=== PATIENT | female | born 1945 | race American Indian/Alaskan Native ===

== ENCOUNTER 2018-10-23 05:44 | Day surgery (SDC) | payer MEDICARE ==
[~2018-10-23 05:44] MED LIST: LACTATED RINGERS 1,000 ML IV SCH
[2018-10-23] MEDS ORDERED: NACL BACTERIOSTATIC INFILTRATI ONE (06:25)
[2018-10-23] MEDS ORDERED: MARCAINE 0.25% INFILTRATI ONE ×2 (06:53→07:30)
[2018-10-23] MEDS ORDERED: XYLOCAINE 1% 20 mL ONE (06:53)
[2018-10-23 07:04] LABS: Basophils % (Auto) 0.6 % (0.0-1.8); Eosinophils # (Auto) 0.2 K/mm3 (0.0-0.4); Eosinophils % (Auto) 2.6 % (0.0-4.3); Hematocrit 38.8 % (30.3-42.9); Hemoglobin 12.5 gm/dl (10.1-14.3); Lymphocytes # (Auto) 1.6 K/mm3 (1.2-5.4); Lymphocytes % (Auto) 27.2 % (13.4-35.0); Mean Corpuscular HGB Conc 32 % (30-34); Mean Corpuscular Volume 91 fl (79-97); Monocytes # (Auto) 0.4 K/mm3 (0.0-0.8); Monocytes % (Auto) 7.2 % (0.0-7.3); Platelet Count 146 K/mm3 (140-440); Red Blood Count 4.24 M/mm3 (3.65-5.03); Red Cell Distribution Width 13.6 % (13.2-15.2)
[2018-10-23 07:15] LABS: Calcium 9.9 mg/dL (8.4-10.2); INR 0.91 (0.87-1.13); Partial Thromboplastin Time 29.9 Sec. (24.2-36.6)
--- NOTE | 2018-10-23 07:23 | Anesthesia Day of Surgery ---
Anesthesia Day of Surgery - Day of Surgery Patient Examined: Yes Patient H&P Reviewed: Yes Patient is NPO: Yes Cardiac Clearance: Yes
--- NOTE | 2018-10-23 07:23 | Anesthesia Consultation ---
Anesthesia Consult and Med Hx Date of service: 10/23/18 - Airway Anesthetic Teeth Evaluation: Edentulous ROM Head & Neck: Adequate Mental/Hyoid Distance: Adequate Mallampati Class: Class III Intubation Access Assessment: Possibly Difficult - Pulmonary Exam CTA: Yes - Cardiac Exam Cardiac Exam: No Murmur (irregular rhythm) - Pre-Operative Health Status ASA Pre-Surgery Classification: ASA3 Proposed Anesthetic Plan: General, MAC - Pre-Anesthesia Comment Pre-Anesthesia Comments: GA vs MAC pending discussion with surgeon - Pulmonary Hx Smoking: Yes (QUIT 40 YRS AGO) Hx Respiratory Symptoms: No COPD: No Hx Sleep Apnea: No - Cardiovascular System Hx Hypertension: Yes Hx Heart Attack/AMI: No Hx Percutaneous Transluminal Coronary Angioplasty (PTCA): No Hx Cardia Arrhythmia: Yes (a-fib; off eliquis since 10/19) Hx Pacemaker: No Hx Internal Defibrillator: No - Central Nervous System Hx Seizures: No CVA: No - Endocrine Hx Renal Disease: Yes (CKD; 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
[2018-10-23] MEDS ORDERED: XYLOCAINE MPF 2% ONE (07:29)
[2018-10-23] MEDS ORDERED: DIPRIVAN 10 MG/ML IV ONE (07:29)
[2018-10-23] MEDS ORDERED: SUBLIMAZE ONE (07:29)
[2018-10-23] MEDS ORDERED: ZOFRAN ONE (07:29)
[2018-10-23] MEDS ORDERED: QUELICIN ONE (07:29)
[2018-10-23] MEDS ORDERED: DECADRON ONE (07:29)
[2018-10-23] MEDS ORDERED: NACL 0.9% IR ONE (07:30)
[2018-10-23] MEDS ORDERED: XYLOCAINE 1% 20 mL INFILTRATI ONE (07:30)
[2018-10-23] MEDS ORDERED: VANCOMYCIN 1,250 MG in NACL 0.9% 250ML 250 ML IV SCH (07:45)
[2018-10-23] MEDS ORDERED: VANCOMYCIN 1,250 MG in NACL 0.9% 500 ML 500 ML IV ONE (08:00)
[2018-10-23] MEDS ORDERED: SUBLIMAZE IV PRN (09:14)
[2018-10-23] MEDS ORDERED: NORCO 5/325 PO PRN (09:14)
--- NOTE | 2018-10-23 09:17 | Short Stay Summary ---
Short Stay Documentation Date of service: 10/23/18 - History Principal diagnosis: RIGHT AND LEFT BACK SOFT TISSUE MASS - Allergies and Medications Current Medications: Allergies Penicillins Allergy (Intermediate, Verified 10/11/18 12:15) Itching Home Medications Medication Instructions Recorded Confirmed Last Taken Type Allopurinol [Zyloprim] 100 mg PO QDAY 12/04/13 10/23/18 10/22/18 14:00 History Furosemide [Lasix] 40 mg PO DAILY 12/04/13 10/23/18 10/22/18 14:00 History Simvastatin 10 mg PO QDAY 12/04/13 10/23/18 10/22/18 14:00 History Aspirin [Aspirin BABY CHEW TAB] 81 mg PO QDAY 30 Days tab.chew 01/26/1410/2310/22/18 14:00 Rx Apixaban [Eliquis] 5 mg PO BID 10/11/18 10/11/18 10/19/18 14:00 History Colchicine [Colcrys] 0.6 mg PO PRN 10/11/18 10/23/18 10/22/18 14:00 History Metoprolol Xl [Metoprolol 50 mg PO DAILY 10/11/18 10/11/18 10/22/18 14:00 History SUCCINATE ER TAB] Active Medications Lactated Ringer's (Lactated Ringers) 1,000 mls @ 42 mls/hr IV DIRECT AMA Last Admin: 10/23/18 06:40 Dose: 42 mls/hr Documented by: Vancomycin HCl 1,250 mg/ (Sodium Chloride) 275 mls @ 166.667 mls/hr IV PREOP AMA - Brief post op/procedure progress note Date of procedure: 10/23/18 Pre-op diagnosis: right and left back soft tissue mass Post-op diagnosis: same Procedure: excision soft tissue mass right and left back Anesthesia: GETA, local Findings: 1. left back soft tissue mass - 15 cm 2. right back soft tissue mass - 11 cm Surgeon: AMITA OLIVERA Estimated blood loss: minimal Pathology: list (1. right back lipoma, 2. left back lipoma) Specimen disposition: to lab Condition: stable - Hospital course Hospital course: Pt observed in PACU and discharged to home in stable condition when criteria met - Disposition Condition at discharge: Good Disposition: DC- TO HOME OR SELFCARE Short Stay Discharge Plan Activity: no restrictions Diet: regular Wound: open to air, per your surgeon's advice Additional Instructions: SEE PRINTED DISCHARGE INSTRUCTIONS Follow up with: MOIZ STARR MD [Primary Care Provider] - 7 Days AMITA OLIVERA DO [Staff Physician] - 10 Days Prescriptions: HYDROcodone/APAP 5-325 [[place] 5/325] 1 each PO Q6HR PRN #20 tablet PRN Reason: Pain
--- NOTE | 2018-10-23 10:34 | Post Anesthesia Evaluation ---
- Post Anesthesia Evaluation Patient Participated: Yes Airway Patent: Yes Stable Respiratory Function: Yes Nausea/Vomiting: No Temp > 96.8F: Yes Pain Manageable: Yes Adequeate Hydration: Yes Anesthesia Complications: No
[2018-10-23 11:11] VITALS: BP 148/92
--- NOTE | 2018-10-24 18:10 | Operative Report ---
PREOPERATIVE DIAGNOSES: Right and left back soft tissue masses. POSTOPERATIVE DIAGNOSES: Right and left back soft tissue masses. PROCEDURE: Excision of soft tissue mass, right and left back. ANESTHESIA: General endotracheal anesthesia, local. FINDINGS: 1. Left back soft tissue mass, 15 cm. 2. Right back soft tissue mass, 11 cm. SURGEON: Tamia Toscano DO ESTIMATED BLOOD LOSS: Minimal. PATHOLOGY: 1. Right back lipoma. 2. Left back lipoma. SPECIMEN DISPOSITION: To lab. CONDITION AND DISPOSITION: The patient is stable to PACU. HISTORY OF PRESENT ILLNESS AND INDICATIONS: The patient is a 73-year-old female who presented as a referral to the surgery clinic with complaints of a large lump on the left side of her back. On examination, this was consistent with a soft tissue mass, likely a lipoma. The patient expressed discomfort with the mass in this area, especially when lying on her back due to its large size and therefore recommendation was to have it removed. All risks, benefits and alternatives to surgery were discussed with the patient and her daughter at the bedside. Cardiology preoperative risk assessment and clearance was obtained and the patient held her Eliquis for 2 days prior to surgery. Upon evaluation in the preoperative area, the patient also brought to my attention a similar mass on the right side of her back. Recommendation was to also remove this as the patient was now off of her Eliquis for 2 days. This was added to the consent and witnessed. PROCEDURE IN DETAIL: The patient was identified in the preoperative area and the operative area was marked. She was then taken back to the operating room and anesthesia was induced on the stretcher. The patient was then positioned on the OR bed in prone position with all bony prominences padded appropriately. The back was prepped and draped in the usual sterile fashion and a timeout performed. I first started with left-sided back mass. The course of the incision was marked with a marking pen. Local anesthetic was infiltrated into the skin and subcutaneous tissue at the intended incision site. A horizontal incision was made over the soft tissue mass using a #10 blade. Dissection was carried down through skin and subcutaneous tissue using electrocautery until the soft tissue mass was encountered. The soft tissue mass was a lobulated fatty tumor consistent with a lipoma, which was carefully from the surrounding tissue using a combination of blunt dissection and electrocautery. Once it was circumferentially dissected, it was removed via the incision and measured. It measured approximately 15 cm and it was passed off the table as a specimen. The wound was then irrigated and checked for hemostasis, which was carefully ensured using electrocautery and pressure. The wound was then packed with 2 lap sponges and I turned my attention to the right back soft tissue mass. The course of the incision was marked using a marking pen and the skin was anesthetized with local anesthetic. A horizontal incision was made with a #10 blade and dissection was carried down through the skin and subcutaneous tissue using Bovie electrocautery. Once the soft tissue mass was encountered, it was circumferentially dissected from the surrounding tissue using combination of blunt dissection and Bovie electrocautery. This was also a lobulated fatty tumor consistent with a lipoma. Once it was , it was removed via the incision and measured to be about 11 cm. The cavity was then irrigated and checked for hemostasis, which was ensured using combination of electrocautery and pressure. Once hemostasis was ensured, the Tiara powder was sprayed into the cavity to further ensure hemostasis. The wound was then closed in a 2-layer fashion. The deep dermal layer was closed with interrupted 3-0 Vicryl suture. The skin was closed with 3-0 Monocryl running subcuticular stitch and skin glue. The left back mass was closed in a similar fashion. The lap pads were removed and there was no bleeding seen in the wound bed. Tiara powder was applied to the wound bed and the skin incision was closed in a 2-layer fashion. The deep dermal layer was closed with 3-0 Vicryl interrupted sutures and the skin incision was closed with 3-0 Monocryl running subcuticular stitch and skin glue. At the end of the case, all sponge, instrument, sharp counts were correct x 2. The patient was awoken from anesthesia and transferred to the stretcher in supine position and extubated. She was taken to PACU in stable condition. A compression bra was applied. JOB# [id number]
== END 2018-10-23 10:50 | disposition home or self-care (01) ==
LOC: OR 05:44
PROVIDERS: ATTEND Surgery
DX: D17.1 Benign lipomatous neoplasm of skin and subcutaneous tissue of trunk (principal); I13.0 Hypertensive heart and chronic kidney disease with heart failure and stage 1 through stage 4 chronic kidney disease, or unspecified chronic kidney disease; E11.22 Type 2 diabetes mellitus with diabetic chronic kidney disease; N18.3 Chronic kidney disease, stage 3 (moderate); I50.23 Acute on chronic systolic (congestive) heart failure; N13.30 Unspecified hydronephrosis; D69.6 Thrombocytopenia, unspecified; I42.9 Cardiomyopathy, unspecified; E78.00 Pure hypercholesterolemia, unspecified; I48.91 Unspecified atrial fibrillation; M19.90 Unspecified osteoarthritis, unspecified site; Z98.42 Cataract extraction status, left eye; Z79.899 Other long term (current) drug therapy; Z88.0 Allergy status to penicillin; Z79.82 Long term (current) use of aspirin; Z87.891 Personal history of nicotine dependence; Z98.41 Cataract extraction status, right eye; Z85.3 Personal history of malignant neoplasm of breast; Z90.11 Acquired absence of right breast and nipple; Z90.710 Acquired absence of both cervix and uterus; Z90.721 Acquired absence of ovaries, unilateral; Z72.89 Other problems related to lifestyle; Z98.890 Other specified postprocedural states
CPT/HCPCS: 21930; 36415; 80048; 82962; 85025; 85610; 85730; 88304; J0330; J1100; J2405; J2704; J3010; J3370; J7050; J7120; J7040

== ENCOUNTER 2019-03-08 10:57 | Outpatient (CLI) | payer MEDICARE ==
--- NOTE | 2019-03-08 13:56 | Mammography Report ---
DIGITAL SCREENING MAMMOGRAM WITH CAD, 03/08/2019 INDICATION: Routine screening mammography. Personal history of breast cancer, status post right maste ctomy. TECHNIQUE: Digital left 2D mammography was obtained in the craniocaudal and mediolateral oblique pro jections. This examination was interpreted with the benefit of Computer-Aided Detection analysis. COMPARISON: 06/11/2015 FINDINGS: Breast Density: There are scattered areas of fibroglandular density. Benign-appearing vascular calcif ications again noted. There is no evidence of dominant mass, suspicious calcifications or architectur al distortion in the left breast. IMPRESSION: Follow up recommendation: Routine yearly BI-RADS Category 2: Benign. A "normal" or negative report should not discourage follow up or biopsy of a clinically significant f inding. A written summary of these findings will be mailed to the patient. The patient will be entered into a mammography reporting system which will generate a reminder letter for the patient's next appointmen t at the appropriate interval. The [employer] recommends yearly mammograms starting at age 40 and continuing as l annmarie as a woman is in good health. Breast MRI is recommended for women with an approximate 20-25% or greater lifetime risk of breast cancer, including women with a strong family history of breast or ova shy cancer or who have been treated for Hodgkin's disease. Signer Name: Audrey Sotelo MD Signed: 03/08/2019 1:52 PM Workstation Name: [id number]
== END 2019-03-08 10:58 | disposition home or self-care (01) ==
LOC: SPVWC 10:57
PROVIDERS: ATTEND Internal Medicine
DX: Z12.31 Encounter for screening mammogram for malignant neoplasm of breast (principal); N64.89 Other specified disorders of breast

== ENCOUNTER 2020-05-08 12:32 | Outpatient (CLI) | payer MEDICARE ==
--- NOTE | 2020-05-08 15:15 | Mammography Report ---
DIGITAL SCREENING MAMMOGRAM WITH CAD, 05/08/2020 INDICATION: Routine screening mammography. TECHNIQUE: Digital left 2D mammography was obtained in the craniocaudal and mediolateral oblique pro jections. This examination was interpreted with the benefit of Computer-Aided Detection analysis. COMPARISON: 03/08/2019 FINDINGS: Breast Density: There are scattered areas of fibroglandular density. There is no evidence of dominant mass, suspicious calcifications or architectural distortion in the l eft breast. IMPRESSION: BI-RADS Category 1: Negative. No mammographic evidence of malignancy. Recommend routine screening m ammography in one year. A "normal" or negative report should not discourage follow up or biopsy of a clinically significant f inding. A written summary of these findings will be mailed to the patient. The patient will be entered into a mammography reporting system which will generate a reminder letter for the patient's next appointmen t at the appropriate interval. The [employer] recommends yearly mammograms starting at age 40 and continuing as l annmarie as a woman is in good health. Breast MRI is recommended for women with an approximate 20-25% or greater lifetime risk of breast cancer, including women with a strong family history of breast or ova shy cancer or who have been treated for Hodgkin's disease. Signer Name: Jarocho Rodriguez MD Signed: 05/08/2020 3:11 PM Workstation Name: [id number]
== END 2020-05-08 12:33 | disposition home or self-care (01) ==
LOC: SPVWC 12:32
PROVIDERS: ATTEND Internal Medicine
DX: Z12.31 Encounter for screening mammogram for malignant neoplasm of breast (principal)
CPT/HCPCS: 77067

== ENCOUNTER 2021-08-31 12:38 | Outpatient (CLI) | payer MEDICARE ==
--- NOTE | 2021-09-01 11:43 | Mammography Report ---
DIGITAL SCREENING MAMMOGRAM WITH CAD, 08/31/2021 CLINICAL INFORMATION / INDICATION: Routine screening mammography TECHNIQUE: Digital 2D mammography was obtained in the craniocaudal and mediolateral oblique projectio ns. This examination was interpreted with the benefit of Computer-Aided Detection analysis. COMPARISON: 05/08/2020 and prior FINDINGS: Breast Density: There are scattered areas of fibroglandular density. No dominant mass, suspicious calcifications, or architectural distortion in either breast. Arterial calcifications are again seen. IMPRESSION: No mammographic evidence of malignancy. Follow up recommendation: Routine yearly screening mammogram. BI-RADS Category 2: BENIGN. A "normal" or negative report should not discourage follow up or biopsy of a clinically significant f inding. A written summary of these findings will be mailed to the patient. The patient will be entered into a mammography reporting system which will generate a reminder letter for the patient's next appointmen t at the appropriate interval. The [employer] recommends yearly mammograms starting at age 40 and continuing as l annmarie as a woman is in good health. Breast MRI is recommended for women with an approximate 20-25% or greater lifetime risk of breast cancer, including women with a strong family history of breast or ova shy cancer or who have been treated for Hodgkin's disease. Signer Name: Emil Romero MD Signed: 09/01/2021 11:39 AM Workstation Name: [id number]
== END 2021-08-31 12:39 | disposition home or self-care (01) ==
LOC: SPVWC 12:38
PROVIDERS: ATTEND Internal Medicine
DX: Z12.31 Encounter for screening mammogram for malignant neoplasm of breast (principal); N64.89 Other specified disorders of breast